=== PATIENT | male | born 1970 | race Caucasian/White ===

== ENCOUNTER 2019-02-11 18:31 | Emergency (ER) | payer OTHER ==
[2019-02-11 18:45] VITALS: TEMP 98.4; BMI 25.0
[2019-02-11] MEDS ORDERED: FOLIC ACID INJECTION - 1 MG, THIAMINE HCL 100 MG, MULTIVIT INJECTION ADULT 10 ML in SOD... IVPB ONE (18:45)
--- NOTE | 2019-02-11 18:46 | PDOC ---
Rapid Medical Evaluation Time Seen by Provider: 02/11/19 18:41 Medical Evaluation: 02/11/19 18:41 Pt presents for abdominal pain starting on Monday. Pt has history of alcoholism. 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 States the pain is in the middle of his stomach. Denies vomiting Exam: epigastric tenderness Orders: labs, IV, fluids Pt to proceed to the ER for further evaluation Pt took dimedrol/analogin Discharge Disposition - Diagnosis Abdominal pain - Referrals - Patient Instructions - Post Discharge Activity
[2019-02-11] MEDS ORDERED: SODIUM CHLORIDE 0.9% 500 ML INFUS.BAG IV ONE (19:47)
--- NOTE | 2019-02-11 19:49 | PDOC ---
History of Present Illness - General Chief Complaint: Pain, Acute Stated Complaint: STOMACH PAIN Time Seen by Provider: 02/11/19 18:41 - History of Present Illness Initial Comments: 02/11/19 19:48 The patient is a 48 y/o LEP French speaking male with a PMH of ETOH abuse here tonight for abdominal pain. States he intermittently (2-3x yearly) drinks cognac and often has subsequent abdominal pain. Abdominal pain is constant, sharp w/o radiation. Denies any associated nausea/vomiting, diarrhea/ constipation. States pain usually persists for 1-2 days after his binge drinking. Denies any previous evaluation for abdominal pain. States he has no interest in detox at this time. Daughter and son @ bedside; daughter is a ED Newborn Hearing Screener. [employer]: denies Social: 1 ppd/30 years, 2-3x binge drinking annually, denies other toxic habits Past History - Past Medical History Allergies/Adverse Reactions: Allergies Allergy/AdvReac Type Severity Reaction Status Date / Time No Known Allergies Allergy Verified 02/11/19 18:45 COPD: No - Psycho Social/Smoking Cessation Hx Smoking History: Current every day smoker Number of Cigarettes Smoked Daily: 20 Information on smoking cessation initiated: No Review of Systems - Review of Systems Constitutional: No: Fever Respiratory: No: Shortness of Breath Cardiac (ROS): No: Chest Pain ABD/GI: Yes: Abdominal cramping. No: Constipated, Diarrhea, Nausea, Vomiting : No: Dysuria, Hematuria *Physical Exam - Vital Signs Last Vital Signs Temp Pulse Resp BP Pulse Ox 98.4 F 121 H 16 127/90 96 02/11/19 18:41 02/11/19 18:41 02/11/19 18:41 02/11/19 18:41 02/11/19 18:41 - Physical Exam Comments: 02/11/19 19:59 Triage VS reviewed General: awake, alert, pleasantly intoxicated w/alcohol on breath Abdomen: soft, (+) BS, mild epigastric TTP w/o peritoneal sign CV: S1, S2, RRR Respiratory: CLTA B/L Neuro: A&O x3, CN II-XII intact Heart Score/ECG Review - ECG Impressions Comment:: 02/11/19 20:29 HR 106, Flat T waves in V5-V6, no CALI/STD; no prior ECG available for comparison ED Treatment Course - LABORATORY CBC & Chemistry Diagram: 02/11/19 20:30 02/11/19 20:30 - RADIOLOGY Radiology Studies Ordered: Category Date Time Status GALLBLADDER US [US] Stat Ultrasound 02/11/19 19:48 Ordered Medical Decision Making - Medical Decision Making 02/11/19 20:04 48 y/o male with abdominal pain + acute ETOH intoxication Tachycardic (HR 121) other VS unremarkable Will give fluids, Thiamine, GB U/S to evaluate for acute cholecystitis. Also consider, pancreatitis, gastritis, PUD, biliary colic, less likely SBO, bowel perforation, early appendicitis. Will obtain Troponin x1, ECG to r/o ACS ( abdominal pain as anginal equivalent) though low clinical suspicion. 02/11/19 20:44 GI Cocktail hanging EKG non-ischemic as documented in EKG section of EMR 02/11/19 21:01 My read of GB US shows, no AGBW thickening, no pericholecystic fluid 02/11/19 21:05 GB U/S read as negative for acute cholecystitis by radiology 02/11/19 22:27 ETOH 219 CMP, CBC unremarkable, CK 500's - not in rhabdo range Patient @ CT 02/11/19 22:36 02/11/19 23:50 CTAP negative for acute pathology - likely alcohol gastritis, however will obtain 2nd Troponin, repeat EKG to further evaluate for ACS 02/11/19 23:59 EKG unchanged form EKG earlier in evaluation - persistent flat T waves in V5-V6 ; Troponin pending 02/12/19 00:04 Patient reassessed @ bedside, resting comfortably, belly soft 02/12/19 01:40 Troponin x2 02/12/19 02:33 Patient reassessed @ bedside using [employer], symptomatically improved Counseled again on alcohol cessation; advised to use OTC medications for symptomatic relief Clinical Impression: Abdominal Pain likely 2/2 Alcoholic Gastritis Discharge - Discharge Information Problems reviewed: Yes Clinical Impression/Diagnosis: Abdominal pain Condition: Good Disposition: HOME - Admission No - Follow up/Referral Referrals: Heather Sinha MD [Primary Care Provider] - - Patient Discharge Instructions Patient Printed Discharge Instructions: DI for Alcohol Abuse Additional Instructions: Vy mozhete pryymaty Maalox i Pepcid pry bolyakh u zhyvoti. My nadaly informatsiyu pro prypynennya vzhyvannya alkoholyu. Povernit?sya do rony de la cruz, alex otrymaty bud?-mendel ram / nita / symptomy. You can take Maalox and Pepcid for your abdominal pain. We have provided information on alcohol cessation. Return to the Emergency Department for any new/worsening/concerning symptoms. - Post Discharge Activity
--- NOTE | 2019-02-11 19:58 | PDOC ---
Attending Attestation - Resident Resident Name: TicoAbeba - ED Attending Attestation I have performed the following: I have examined & evaluated the patient, The case was reviewed & discussed with the resident, I agree w/resident's findings & plan - HPI HPI: 02/11/19 22:15 see resident hpi 02/11/19 22:15 - Physicial Exam PE: 02/11/19 22:15 agree with resident exam - Medical Decision Making 02/11/19 22:16 48-year-old male with epigastric pain with admitted recent alcohol use Labs were unrevealing Right upper quadrant ultrasound showed no significant abnormality Plan for antacid administration and CT scan of the abdomen and pelvis for further evaluation Patient is relatively comfortable at this time, pending CT results will likely D /C with outpatient follow-up
[2019-02-11 20:55] LABS: BASO % 0.7 % (0-2.0); EOS % 1.2 % (0-4.5); HEMATOCRIT 49.9 % (35.4-49); HEMOGLOBIN 16.7 GM/dL (11.7-16.9); LYMPH % 45.1 % (8-40); MCH 31.5 pg (25.7-33.7); MCHC 33.5 g/dl (32.0-35.9); MEAN PLT VOLUME 8.7 fl (7.5-11.1); MONO % 8.3 % (3.8-10.2); NEUT % 44.7 % (42.8-82.8); PLATELET COUNT 314 K/MM3 (134-434); RBC 5.31 M/mm3 (4.00-5.60); RDW 13.7 % (11.9-15.9); WHITE BLOOD COUNT 9.8 K/mm3 (4.0-10.0)
[2019-02-11] MEDS ORDERED: MAG HYDROX/AL HYDROX/SIMETH 30 ML UNIT-DOSE CUP PO ONE (20:58)
[2019-02-11] MEDS ORDERED: FAMOTIDINE 20 MG/50 ML IVPB 20 MG/50 ML MG IVPB ONE ×2 (20:58→21:32)
[2019-02-11 21:10] LABS: INR 0.92 (0.83-1.09); PROTHROMBIN TIME (PATIENT) 10.8 SEC (9.7-13.0)
[2019-02-11 21:22] LABS: ALBUMIN 4.4 g/dl (3.4-5.0); ALK PHOS 101 U/L (45-117); ANION GAP 10 MMOL/L (8-16); BILIRUBIN,TOTAL 0.5 mg/dL (0.2-1); BLOOD UREA NITROGEN 9.9 mg/dL (7-18); CALCIUM 9.2 mg/dL (8.5-10.1); CHLORIDE 104 mmol/L (98-107); CO2 25 mmol/L (21-32); GLUCOSE,RANDOM 80 mg/dL (74-106); POTASSIUM 3.9 mmol/L (3.5-5.1); SGOT/AST 52 U/L (15-37); SGPT/ALT 55 U/L (13-61); SODIUM 139 mmol/L (136-145); TOT PROT 7.9 g/dl (6.4-8.2)
[2019-02-11] MEDS ORDERED: MAG HYDROX/AL HYDROX/SIMETH 30 ML UNIT-DOSE CUP ONE (21:38)
[2019-02-12 02:41] VITALS: BP 109/68; PULSE 92
--- NOTE | 2019-02-12 09:49 | EKG ---
Test Reason : Blood Pressure : / mmHG Vent. Rate : 088 BPM Atrial Rate : 088 BPM P-R Int : 138 ms QRS Dur : 088 ms QT Int : 386 ms P-R-T Axes : 063 000 023 degrees QTc Int : 467 ms NORMAL SINUS RHYTHM NONSPECIFIC T WAVE ABNORMALITY PROLONGED QT ABNORMAL ECG WHEN COMPARED WITH ECG OF 11-FEB-2019 19:29, NO SIGNIFICANT CHANGE WAS FOUND Confirmed by MD RENU, JONY ([id number]) on 02/12/2019 9:49:20 AM Referred By: Confirmed By:JONY SEARS MD
--- NOTE | 2019-02-12 09:53 | EKG ---
Test Reason : Blood Pressure : / mmHG Vent. Rate : 106 BPM Atrial Rate : 106 BPM P-R Int : 134 ms QRS Dur : 088 ms QT Int : 354 ms P-R-T Axes : 054 -10 034 degrees QTc Int : 470 ms SINUS TACHYCARDIA NONSPECIFIC T WAVE ABNORMALITY ABNORMAL ECG NO PREVIOUS ECGS AVAILABLE Confirmed by MD RENU, JONY ([id number]) on 02/12/2019 9:53:13 AM Referred By: Confirmed By:JONY SEARS MD
== END 2019-02-12 02:41 | disposition home or self-care (01) ==
LOC: JER 18:31
PROC: 3E033GC Introduction of Other Therapeutic Substance into Peripheral Vein, Percutaneous Approach (ICD-10-PCS; principal; 2019-02-11)
PROC: 3E033GC Introduction of Other Therapeutic Substance into Peripheral Vein, Percutaneous Approach (ICD-10-PCS; 2019-02-11)
DX: K29.20 Alcoholic gastritis without bleeding (principal); F10.120 Alcohol abuse with intoxication, uncomplicated; Y90.5 Blood alcohol level of 100-119 mg/100 ml; F17.210 Nicotine dependence, cigarettes, uncomplicated
CPT/HCPCS: 36415; 71045-TC-FY; 74177-TC; 76705-TC; 80053; 80307; 82550; 82553; 83690; 84484; 85025; 85610; 93005; 93010; 96365; 96366; 96368; 99284-25; J7030